=== PATIENT | male | born 1960 | race Caucasian/White ===

== ENCOUNTER 2022-01-19 18:01 | Inpatient (IN) | payer OTHER ==
[2022-01-19 20:55] VITALS: BMI 22.4
[2022-01-19] MEDS ORDERED: DICYCLOMINE HCL 10 MG CAPSULE PO PRN (23:57)
[2022-01-19] MEDS ORDERED: MAGNESIUM CITRATE 300 ML BOTTLE PO PRN (23:57)
[2022-01-19] MEDS ORDERED: ACETAMINOPHEN 325 MG TABLET (FP) PO PRN ×2 (23:57)
[2022-01-19] MEDS ORDERED: BISMUTH SUBSALICYLATE 524 MG/30 ML PO PRN (23:57)
[2022-01-19] MEDS ORDERED: LOPERAMIDE HCL 2 MG CAPSULE PO PRN (23:57)
[2022-01-19] MEDS ORDERED: MAG HYDROX/AL HYDROX/SIMETH 30 ML UNIT-DOSE CUP PO PRN (23:57)
[2022-01-19] MEDS ORDERED: ONDANSETRON *ODT* 4 MG TABLET SL PRN (23:57)
[2022-01-19] MEDS ORDERED: NICOTINE 10 MG CARTRIDGE (INHALER) IH PRN (23:57)
[2022-01-19] MEDS ORDERED: MAGNESIUM HYDROX 2400MG/30ML ORAL SUSPENSION 30 ML CUP PO PRN (23:57)
[2022-01-19] MEDS ORDERED: BENZOCAINE/MENTHOL (CHLORASEPTIC ) LOZENGE MM PRN (23:57)
[2022-01-19] MEDS ORDERED: IBUPROFEN 400 MG TABLET (FP) PO PRN (23:57)
[2022-01-20] MEDS: chlordiazePOXIDE HCL 25 MG CAPSULE PO PRN (01:26)
[2022-01-20] MEDS: METHOCARBAMOL 500 MG TABLET PO PRN ×2 (01:26→22:12)
[2022-01-20] MEDS: chlordiazePOXIDE HCL 25 MG CAPSULE PO SCH ×4 (05:16→22:13)
[2022-01-20 10:22] LABS: HEMATOCRIT 40.1 % (35.4-49); HEMOGLOBIN 13.4 GM/dL (11.7-16.9); MCHC 33.4 g/dl (32.0-35.9); MEAN CELL VOLUME 101.8 fl (80-96); PLATELET COUNT 179 10^3/uL (134-434); RBC 3.94 M/mm3 (4.00-5.60); RDW 14.1 % (11.9-15.9)
[2022-01-20] MEDS: NICOTINE 14 MG/24 HOURS TOPICAL PATCH TD SCH (10:40)
[2022-01-20] MEDS: PRENATAL VITAMINS W/ FOLIC ACID TABLET (FP) PO SCH (10:40)
[2022-01-20] MEDS: IBUPROFEN 600 MG TABLET (FP) PO PRN ×2 (10:42→22:11)
[2022-01-20 10:45] LABS: CALCIUM 8.8 mg/dL (8.5-10.1)
[2022-01-20 10:46] LABS: ALBUMIN 2.9 g/dl (3.4-5.0); BLOOD UREA NITROGEN 11.8 mg/dL (7-18)
[2022-01-20 10:49] LABS: CREATININE 0.6 mg/dL (0.55-1.3)
[2022-01-20 10:50] LABS: BILIRUBIN,TOTAL 1.1 mg/dL (0.2-1); TOT PROT 5.8 g/dl (6.4-8.2)
[2022-01-20] MEDS: QUEtiapine FUMARATE 50 MG TABLET PO SCH (22:12)
[2022-01-20] MEDS: MELATONIN 5 MG TABLETS PO SCH (22:12)
[2022-01-20] MEDS: THIAMINE HCL 100 MG TABLET (FP) PO SCH (22:13)
[2022-01-21] MEDS: chlordiazePOXIDE HCL 25 MG CAPSULE PO PRN (04:15)
[2022-01-21] MEDS: IBUPROFEN 600 MG TABLET (FP) PO PRN (04:16)
[2022-01-21] MEDS: METHOCARBAMOL 500 MG TABLET PO PRN (04:16)
[2022-01-21] MEDS: chlordiazePOXIDE HCL 25 MG CAPSULE PO SCH ×4 (05:20→22:16)
[2022-01-21] MEDS: PRENATAL VITAMINS W/ FOLIC ACID TABLET (FP) PO SCH (10:23)
[2022-01-21] MEDS: SERTRALINE HCL 50 MG TABLET (FP) PO SCH (10:23)
[2022-01-21] MEDS: NICOTINE 14 MG/24 HOURS TOPICAL PATCH TD SCH (10:23)
[2022-01-21] MEDS: AMOX TR/POT CLAV 875MG/125MG TABLETS (FP) PO SCH (22:17)
[2022-01-21] MEDS: ATORVASTATIN CA 80 MG TABLET (FP) PO SCH (22:17)
[2022-01-21] MEDS: THIAMINE HCL 100 MG TABLET (FP) PO SCH (22:17)
[2022-01-21] MEDS: MELATONIN 5 MG TABLETS PO SCH (22:17)
[2022-01-21] MEDS: QUEtiapine FUMARATE 50 MG TABLET PO SCH (22:17)
[2022-01-22] MEDS ORDERED: chlordiazePOXIDE HCL 10 MG CAPSULE PO PRN
[2022-01-22] MEDS: chlordiazePOXIDE HCL 10 MG CAPSULE PO SCH ×4 (05:09→22:13)
[2022-01-22] MEDS: AMOX TR/POT CLAV 875MG/125MG TABLETS (FP) PO SCH ×2 (07:00→17:32)
[2022-01-22] MEDS ORDERED: AMOX TR/POT CLAV 875MG/125MG TABLETS (FP) PO SCH (08:00)
[2022-01-22] MEDS: SERTRALINE HCL 50 MG TABLET (FP) PO SCH (10:15)
[2022-01-22] MEDS: NICOTINE 14 MG/24 HOURS TOPICAL PATCH TD SCH (10:15)
[2022-01-22] MEDS: PRENATAL VITAMINS W/ FOLIC ACID TABLET (FP) PO SCH (10:15)
[2022-01-22 14:37] LABS: BILIRUBIN,TOTAL 0.4 mg/dL (0.2-1)
[2022-01-22] MEDS: THIAMINE HCL 100 MG TABLET (FP) PO SCH (22:12)
[2022-01-22] MEDS: QUEtiapine FUMARATE 50 MG TABLET PO SCH (22:12)
[2022-01-22] MEDS: MELATONIN 5 MG TABLETS PO SCH (22:12)
[2022-01-22] MEDS: ATORVASTATIN CA 80 MG TABLET (FP) PO SCH (22:12)
[2022-01-23] MEDS: chlordiazePOXIDE HCL 10 MG CAPSULE PO SCH ×2 (05:32→18:31)
[2022-01-23] MEDS: AMOX TR/POT CLAV 875MG/125MG TABLETS (FP) PO SCH ×2 (07:39→18:31)
[2022-01-23] MEDS: SERTRALINE HCL 50 MG TABLET (FP) PO SCH (10:17)
[2022-01-23] MEDS: PRENATAL VITAMINS W/ FOLIC ACID TABLET (FP) PO SCH (10:17)
[2022-01-23] MEDS: NICOTINE 14 MG/24 HOURS TOPICAL PATCH TD SCH (10:18)
[2022-01-23] MEDS: MELATONIN 5 MG TABLETS PO SCH (22:51)
[2022-01-23] MEDS: QUEtiapine FUMARATE 50 MG TABLET PO SCH (22:51)
[2022-01-23] MEDS: ATORVASTATIN CA 80 MG TABLET (FP) PO SCH (22:51)
[2022-01-23] MEDS: THIAMINE HCL 100 MG TABLET (FP) PO SCH (22:51)
[2022-01-24] MEDS ORDERED: chlordiazePOXIDE HCL 10 MG CAPSULE PO ONE (05:00)
[2022-01-24 06:08] VITALS: TEMP 97.8
[2022-01-24] MEDS: AMOX TR/POT CLAV 875MG/125MG TABLETS (FP) PO SCH (07:36)
[2022-01-24 09:08] VITALS: BP 101/58; PULSE 74
== END 2022-01-24 09:52 | disposition home or self-care (01) | DRG 775 ==
LOC: YASAS 18:01 → Y3N 23:59
PROVIDERS: ADMIT Allergy & Immunology; ATTEND Surgery
PROC: HZ2ZZZZ Detoxification Services for Substance Abuse Treatment (ICD-10-PCS; principal; 2022-01-19)
DX: F10.230 Alcohol dependence with withdrawal, uncomplicated (principal); F17.210 Nicotine dependence, cigarettes, uncomplicated; F41.9 Anxiety disorder, unspecified; F32.A Depression, unspecified; F43.10 Post-traumatic stress disorder, unspecified; J18.9 Pneumonia, unspecified organism; E46 Unspecified protein-calorie malnutrition; E87.8 Other disorders of electrolyte and fluid balance, not elsewhere classified; E80.6 Other disorders of bilirubin metabolism; J43.9 Emphysema, unspecified; I10 Essential (primary) hypertension; E78.5 Hyperlipidemia, unspecified; F10.24 Alcohol dependence with alcohol-induced mood disorder; Z59.00 Homelessness unspecified; Z56.0 Unemployment, unspecified
CPT/HCPCS: 36415; 80053; 82247; 82435; 85027; 86780; 93005; 93010; C9803-CS; U0003; U0005

== ENCOUNTER 2023-03-15 13:50 | Inpatient (IN) | payer OTHER ==
[2023-03-15 15:21] VITALS: BMI 22.4
[2023-03-15] MEDS ORDERED: LORazepam 2 MG/ML SDV VIAL IM ONE (16:18)
[2023-03-15] MEDS ORDERED: guaiFENesin 600 MG TABLET.ER (FP) PO PRN (16:49)
[2023-03-15] MEDS ORDERED: BENZONATATE 200 MG CAPSULE PO PRN (16:49)
[2023-03-15] MEDS ORDERED: chlordiazePOXIDE HCL 25 MG CAPSULE PO PRN (16:49)
[2023-03-15] MEDS ORDERED: BISMUTH SUBSALICYLATE 524 MG/30 ML PO PRN (16:49)
[2023-03-15] MEDS ORDERED: NALOXONE HCL 0.4 MG/ML VIAL IM PRN (16:49)
[2023-03-15] MEDS ORDERED: MAG HYDROX/AL HYDROX/SIMETH 30 ML UNIT-DOSE CUP PO PRN (16:49)
[2023-03-15] MEDS ORDERED: BENZOCAINE/MENTHOL (CHLORASEPTIC ) LOZENGE MM PRN (16:49)
[2023-03-15] MEDS ORDERED: POLYETHYLENE GLYCOL (HEALTHYLAX) 3350 17 GM PACKET PO PRN (16:49)
[2023-03-15] MEDS ORDERED: IBUPROFEN 600 MG TABLET (FP) PO PRN (16:49)
[2023-03-15] MEDS ORDERED: DICYCLOMINE HCL 10 MG CAPSULE PO PRN (16:49)
[2023-03-15] MEDS ORDERED: NALOXONE HCL (KLOXXADO) 8 MG SPRAY NS PRN (16:49)
[2023-03-15] MEDS ORDERED: LOPERAMIDE HCL 2 MG CAPSULE PO PRN (16:49)
[2023-03-15] MEDS ORDERED: ONDANSETRON *ODT* 4 MG TABLET SL PRN (16:49)
[2023-03-15] MEDS ORDERED: IBUPROFEN 400 MG TABLET (FP) PO PRN (16:49)
[2023-03-15] MEDS ORDERED: MAGNESIUM HYDROX 2400MG/30ML ORAL SUSPENSION 30 ML CUP PO PRN (16:49)
[2023-03-15] MEDS: THIAMINE HCL 100 MG TABLET (FP) PO SCH (22:35)
[2023-03-15] MEDS: MELATONIN 5 MG TABLETS PO SCH (22:35)
[2023-03-15] MEDS: chlordiazePOXIDE HCL 25 MG CAPSULE PO SCH (22:37)
[2023-03-16] MEDS: chlordiazePOXIDE HCL 25 MG CAPSULE PO SCH ×4 (05:49→22:08)
[2023-03-16 09:52] LABS: HEMATOCRIT 40.8 % (35.4-49); HEMOGLOBIN 13.5 GM/dL (11.7-16.9); MCH 32.4 pg (25.7-33.7); MCHC 33.2 g/dl (32.0-35.9); MEAN CELL VOLUME 97.5 fl (80-96); MEAN PLT VOLUME 8.7 fl (7.5-11.1); PLATELET COUNT 77 10^3/uL (134-434); RBC 4.18 M/mm3 (4.00-5.60)
[2023-03-16 09:53] LABS: POTASSIUM 3.5 mmol/L (3.5-5.1)
[2023-03-16 10:05] LABS: ALBUMIN 2.8 g/dl (3.4-5.0); TOT PROT 5.5 g/dl (6.4-8.2)
[2023-03-16 10:06] LABS: BILIRUBIN,TOTAL 1.1 mg/dL (0.2-1); BLOOD UREA NITROGEN 12.8 mg/dL (7-18); CALCIUM 8.6 mg/dL (8.5-10.1); CREATININE 0.8 mg/dL (0.55-1.3)
[2023-03-16] MEDS: PRENATAL VITAMINS W/ FOLIC ACID TABLET (FP) PO SCH (10:21)
[2023-03-16] MEDS: ACETAMINOPHEN 325 MG TABLET (FP) PO PRN (14:17)
[2023-03-16] MEDS: METHOCARBAMOL 500 MG TABLET PO PRN ×2 (14:17→23:40)
[2023-03-16] MEDS: hydrOXYzine PAMOATE 25 MG CAPSULE (FP) PO PRN (18:55)
[2023-03-16] MEDS: MELATONIN 5 MG TABLETS PO SCH (22:08)
[2023-03-16] MEDS: THIAMINE HCL 100 MG TABLET (FP) PO SCH (22:08)
[2023-03-17] MEDS: chlordiazePOXIDE HCL 25 MG CAPSULE PO SCH ×4 (05:17→22:09)
[2023-03-17] MEDS: ACETAMINOPHEN 325 MG TABLET (FP) PO PRN ×2 (05:18→19:03)
[2023-03-17] MEDS: hydrOXYzine PAMOATE 25 MG CAPSULE (FP) PO PRN ×3 (05:18→19:03)
[2023-03-17] MEDS: METHOCARBAMOL 500 MG TABLET PO PRN ×3 (05:19→22:09)
[2023-03-17] MEDS ORDERED: COLLOIDAL OATMEAL 1 BAR EACH TP PRN (09:16)
[2023-03-17] MEDS ORDERED: BACITRACIN ZINC 15 GM TUBE TOPICAL OINTMENT TP SCH (10:00)
[2023-03-17 10:25] LABS: CHOLESTEROL 175 mg/dL (50-200)
[2023-03-17 10:26] LABS: LDL CHOLESTEROL (ONLY SJRH) 61 mg/dL (5-100)
[2023-03-17 10:28] LABS: HDL CHOLESTEROL 103 mg/dL (40-60)
[2023-03-17] MEDS: PRENATAL VITAMINS W/ FOLIC ACID TABLET (FP) PO SCH (10:46)
[2023-03-17] MEDS: BACITRACIN ZINC 15 GM TUBE TOPICAL OINTMENT TP SCH (12:04)
[2023-03-17] MEDS: BACITRACIN 0.9 GM PACKET TP SCH ×2 (12:24→22:09)
[2023-03-17] MEDS: MELATONIN 5 MG TABLETS PO SCH (22:08)
[2023-03-17] MEDS: THIAMINE HCL 100 MG TABLET (FP) PO SCH (22:08)
[2023-03-18] MEDS ORDERED: chlordiazePOXIDE HCL 10 MG CAPSULE PO PRN
[2023-03-18] MEDS: hydrOXYzine PAMOATE 25 MG CAPSULE (FP) PO PRN (02:06)
[2023-03-18] MEDS: chlordiazePOXIDE HCL 10 MG CAPSULE PO SCH ×4 (05:23→22:33)
[2023-03-18] MEDS: BACITRACIN 0.9 GM PACKET TP SCH ×2 (10:30→22:34)
[2023-03-18] MEDS: PRENATAL VITAMINS W/ FOLIC ACID TABLET (FP) PO SCH (10:30)
[2023-03-18] MEDS: THIAMINE HCL 100 MG TABLET (FP) PO SCH (22:33)
[2023-03-18] MEDS: QUEtiapine FUMARATE 50 MG TABLET PO SCH (22:33)
[2023-03-18] MEDS: traZODone HCL 50 MG TABLET (FP) PO SCH (22:33)
[2023-03-19] MEDS: METHOCARBAMOL 500 MG TABLET PO PRN ×2 (05:31→18:09)
[2023-03-19] MEDS: chlordiazePOXIDE HCL 10 MG CAPSULE PO SCH ×2 (05:31→18:07)
[2023-03-19] MEDS: ACETAMINOPHEN 325 MG TABLET (FP) PO PRN (05:32)
[2023-03-19] MEDS: hydrOXYzine PAMOATE 25 MG CAPSULE (FP) PO PRN ×2 (05:33→18:09)
[2023-03-19] MEDS: BACITRACIN 0.9 GM PACKET TP SCH ×2 (10:21→22:15)
[2023-03-19] MEDS: PRENATAL VITAMINS W/ FOLIC ACID TABLET (FP) PO SCH (10:21)
[2023-03-19] MEDS: SERTRALINE HCL 50 MG TABLET (FP) PO SCH (10:22)
[2023-03-19] MEDS: QUEtiapine FUMARATE 50 MG TABLET PO SCH (22:14)
[2023-03-19] MEDS: THIAMINE HCL 100 MG TABLET (FP) PO SCH (22:14)
[2023-03-19] MEDS: traZODone HCL 50 MG TABLET (FP) PO SCH (22:14)
[2023-03-20] MEDS ORDERED: chlordiazePOXIDE HCL 10 MG CAPSULE PO ONE (05:00)
[2023-03-20] MEDS: METHOCARBAMOL 500 MG TABLET PO PRN (05:18)
[2023-03-20] MEDS: hydrOXYzine PAMOATE 25 MG CAPSULE (FP) PO PRN (05:18)
[2023-03-20 06:13] VITALS: RESP 18; TEMP 97.7
[2023-03-20 06:18] VITALS: BP 141/96; PULSE 75
[2023-03-20] MEDS: SERTRALINE HCL 50 MG TABLET (FP) PO SCH (10:22)
[2023-03-20] MEDS: PRENATAL VITAMINS W/ FOLIC ACID TABLET (FP) PO SCH (10:22)
[2023-03-20] MEDS: BACITRACIN 0.9 GM PACKET TP SCH (10:22)
== END 2023-03-20 09:00 | disposition home or self-care (01) | DRG 775 ==
LOC: YASAS 13:50 → Y6N 16:46
PROVIDERS: ADMIT Allergy & Immunology; ATTEND Surgery
PROC: HZ2ZZZZ Detoxification Services for Substance Abuse Treatment (ICD-10-PCS; principal; 2023-03-15)
DX: F10.230 Alcohol dependence with withdrawal, uncomplicated (principal); F17.210 Nicotine dependence, cigarettes, uncomplicated; F25.1 Schizoaffective disorder, depressive type; F10.24 Alcohol dependence with alcohol-induced mood disorder; F43.10 Post-traumatic stress disorder, unspecified; I10 Essential (primary) hypertension; J43.9 Emphysema, unspecified; Z87.09 Personal history of other diseases of the respiratory system; Z28.310 Unvaccinated for COVID-19; Z28.9 Immunization not carried out for unspecified reason
CPT/HCPCS: 36415; 80053; 80061; 85027; 86780; 87635

== ENCOUNTER 2023-05-31 19:06 | Inpatient (IN) | payer OTHER ==
[2023-05-31 19:43] VITALS: BMI 23.7
[2023-05-31] MEDS ORDERED: chlordiazePOXIDE HCL 25 MG CAPSULE PO ONE (20:09)
[2023-05-31] MEDS ORDERED: chlordiazePOXIDE HCL 25 MG CAPSULE PO PRN (20:09)
[2023-05-31] MEDS ORDERED: LORazepam 2 MG/ML SDV VIAL IM ONE (20:09)
[2023-05-31] MEDS ORDERED: guaiFENesin 600 MG TABLET.ER (FP) PO PRN (20:10)
[2023-05-31] MEDS ORDERED: ONDANSETRON *ODT* 4 MG TABLET SL PRN (20:10)
[2023-05-31] MEDS ORDERED: DICYCLOMINE HCL 10 MG CAPSULE PO PRN (20:10)
[2023-05-31] MEDS ORDERED: NICOTINE POLACRILEX 2 MG GUM BUC PRN (20:10)
[2023-05-31] MEDS ORDERED: POLYETHYLENE GLYCOL (HEALTHYLAX) 3350 17 GM PACKET PO PRN (20:10)
[2023-05-31] MEDS ORDERED: BENZOCAINE/MENTHOL (CHLORASEPTIC ) LOZENGE MM PRN (20:10)
[2023-05-31] MEDS ORDERED: ACETAMINOPHEN 325 MG TABLET (FP) PO PRN (20:10)
[2023-05-31] MEDS ORDERED: BENZONATATE 200 MG CAPSULE PO PRN (20:10)
[2023-05-31] MEDS ORDERED: MAGNESIUM HYDROX 2400MG/30ML ORAL SUSPENSION 30 ML CUP PO PRN (20:10)
[2023-05-31] MEDS ORDERED: IBUPROFEN 400 MG TABLET (FP) PO PRN (20:10)
[2023-05-31] MEDS ORDERED: BISMUTH SUBSALICYLATE 524 MG/30 ML PO PRN (20:10)
[2023-05-31] MEDS ORDERED: P-EPHED 60MG/TRIPROLIDI 2.5MG TABLET PO PRN (20:10)
[2023-05-31] MEDS ORDERED: MAG HYDROX/AL HYDROX/SIMETH 30 ML UNIT-DOSE CUP PO PRN (20:10)
[2023-05-31] MEDS ORDERED: LOPERAMIDE HCL 2 MG CAPSULE PO PRN (20:10)
[2023-05-31] MEDS ORDERED: chlordiazePOXIDE HCL 25 MG CAPSULE ONE (20:29)
[2023-05-31] MEDS: levETIRAcetam 500 MG TABLET (FP) PO SCH (22:21)
[2023-05-31] MEDS: MELATONIN 5 MG TABLETS PO SCH (22:21)
[2023-05-31] MEDS: THIAMINE HCL 100 MG TABLET (FP) PO SCH (22:21)
[2023-05-31] MEDS: chlordiazePOXIDE HCL 25 MG CAPSULE PO SCH (22:24)
[2023-06-01] MEDS: chlordiazePOXIDE HCL 25 MG CAPSULE PO SCH ×4 (05:23→22:15)
[2023-06-01] MEDS: METHOCARBAMOL 500 MG TABLET PO PRN (10:14)
[2023-06-01] MEDS: PRENATAL VITAMINS W/ FOLIC ACID TABLET (FP) PO SCH (10:14)
[2023-06-01] MEDS: hydrOXYzine PAMOATE 25 MG CAPSULE (FP) PO PRN (10:14)
[2023-06-01] MEDS: levETIRAcetam 500 MG TABLET (FP) PO SCH ×2 (10:15→22:14)
[2023-06-01 10:26] LABS: CHLORIDE 109 mmol/L (98-107); POTASSIUM 4.4 mmol/L (3.5-5.1); SODIUM 139 mmol/L (136-145)
[2023-06-01 10:30] LABS: CALCIUM 8.5 mg/dL (8.5-10.1)
[2023-06-01 10:31] LABS: ALBUMIN 3.3 g/dl (3.4-5.0); ANION GAP 2 mmol/L (4-13); BLOOD UREA NITROGEN 26.8 mg/dL (7-18); CO2 27 mmol/L (21-32); GLUCOSE,RANDOM 92 mg/dL (74-106)
[2023-06-01 10:34] LABS: SGOT/AST 29 U/L (15-37); SGPT/ALT 26 U/L (13-61)
[2023-06-01 10:35] LABS: BILIRUBIN,TOTAL 1.5 mg/dL (0.2-1)
[2023-06-01 10:36] LABS: TOT PROT 6.2 g/dl (6.4-8.2)
[2023-06-01 10:37] LABS: ALK PHOS 68 U/L (45-117)
[2023-06-01 10:57] LABS: HEMATOCRIT 43.6 % (35.4-49); HEMOGLOBIN 14.3 GM/dL (11.7-16.9); MCH 32.1 pg (25.7-33.7); MCHC 32.8 g/dl (32.0-35.9); MEAN CELL VOLUME 97.8 fl (80-96); MEAN PLT VOLUME 7.8 fl (7.5-11.1); PLATELET COUNT 133 10^3/uL (134-434); RBC 4.46 M/mm3 (4.00-5.60); RDW 13.6 % (11.9-15.9); WHITE BLOOD COUNT 10.6 K/mm3 (4.0-10.0)
[2023-06-01] MEDS: ASPIRIN COATED 81 MG TABLET.EC PO SCH (17:50)
[2023-06-01] MEDS: MELATONIN 5 MG TABLETS PO SCH (22:14)
[2023-06-01] MEDS: ATORVASTATIN CA 40 MG TABLET (FP) PO SCH (22:14)
[2023-06-01] MEDS: traZODone HCL 50 MG TABLET (FP) PO PRN (22:15)
[2023-06-01] MEDS: THIAMINE HCL 100 MG TABLET (FP) PO SCH (22:15)
[2023-06-02] MEDS: chlordiazePOXIDE HCL 25 MG CAPSULE PO SCH ×4 (05:23→22:10)
[2023-06-02] MEDS: levETIRAcetam 500 MG TABLET (FP) PO SCH ×2 (10:09→22:09)
[2023-06-02] MEDS: PRENATAL VITAMINS W/ FOLIC ACID TABLET (FP) PO SCH (10:09)
[2023-06-02] MEDS: ASPIRIN COATED 81 MG TABLET.EC PO SCH (10:09)
[2023-06-02] MEDS: SERTRALINE HCL 50 MG TABLET (FP) PO SCH (15:07)
[2023-06-02] MEDS: QUEtiapine FUMARATE 50 MG TABLET PO SCH (22:09)
[2023-06-02] MEDS: ATORVASTATIN CA 40 MG TABLET (FP) PO SCH (22:09)
[2023-06-02] MEDS: THIAMINE HCL 100 MG TABLET (FP) PO SCH (22:10)
[2023-06-02] MEDS: traZODone HCL 50 MG TABLET (FP) PO PRN (22:10)
[2023-06-03] MEDS ORDERED: chlordiazePOXIDE HCL 10 MG CAPSULE PO PRN
[2023-06-03] MEDS: hydrOXYzine PAMOATE 25 MG CAPSULE (FP) PO PRN (00:21)
[2023-06-03] MEDS: METHOCARBAMOL 500 MG TABLET PO PRN (00:22)
[2023-06-03] MEDS: chlordiazePOXIDE HCL 10 MG CAPSULE PO SCH ×4 (05:19→22:14)
[2023-06-03] MEDS: PRENATAL VITAMINS W/ FOLIC ACID TABLET (FP) PO SCH (10:05)
[2023-06-03] MEDS: levETIRAcetam 500 MG TABLET (FP) PO SCH ×2 (10:05→22:13)
[2023-06-03] MEDS: SERTRALINE HCL 50 MG TABLET (FP) PO SCH (10:05)
[2023-06-03] MEDS: ASPIRIN COATED 81 MG TABLET.EC PO SCH (10:05)
[2023-06-03 17:08] LABS: BASO % 0.4 % (0-2.0); EOS % 3.1 % (0-4.5); HEMATOCRIT 39.3 % (35.4-49); HEMOGLOBIN 13.1 GM/dL (11.7-16.9); LYMPH % 18.3 % (8-40); MCH 32.4 pg (25.7-33.7); MCHC 33.2 g/dl (32.0-35.9); MEAN CELL VOLUME 97.6 fl (80-96); MEAN PLT VOLUME 7.8 fl (7.5-11.1); MONO % 10.6 % (3.8-10.2); NEUT % 67.6 % (42.8-82.8); PLATELET COUNT 114 10^3/uL (134-434); RBC 4.03 M/mm3 (4.00-5.60); RDW 13.6 % (11.9-15.9); WHITE BLOOD COUNT 8.5 K/mm3 (4.0-10.0)
[2023-06-03] MEDS: ATORVASTATIN CA 40 MG TABLET (FP) PO SCH (22:13)
[2023-06-03] MEDS: QUEtiapine FUMARATE 50 MG TABLET PO SCH (22:14)
[2023-06-03] MEDS: THIAMINE HCL 100 MG TABLET (FP) PO SCH (22:14)
[2023-06-03] MEDS: traZODone HCL 50 MG TABLET (FP) PO PRN (22:14)
[2023-06-04] MEDS: METHOCARBAMOL 500 MG TABLET PO PRN (01:17)
[2023-06-04] MEDS: hydrOXYzine PAMOATE 25 MG CAPSULE (FP) PO PRN (01:17)
[2023-06-04] MEDS: chlordiazePOXIDE HCL 10 MG CAPSULE PO SCH ×2 (06:01→17:02)
[2023-06-04] MEDS: ASPIRIN COATED 81 MG TABLET.EC PO SCH (10:04)
[2023-06-04] MEDS: levETIRAcetam 500 MG TABLET (FP) PO SCH ×2 (10:04→22:15)
[2023-06-04] MEDS: SERTRALINE HCL 50 MG TABLET (FP) PO SCH (10:04)
[2023-06-04] MEDS: PRENATAL VITAMINS W/ FOLIC ACID TABLET (FP) PO SCH (10:04)
[2023-06-04] MEDS: ATORVASTATIN CA 40 MG TABLET (FP) PO SCH (22:14)
[2023-06-04] MEDS: traZODone HCL 50 MG TABLET (FP) PO PRN (22:14)
[2023-06-04] MEDS: QUEtiapine FUMARATE 50 MG TABLET PO SCH (22:15)
[2023-06-04] MEDS: THIAMINE HCL 100 MG TABLET (FP) PO SCH (22:15)
[2023-06-05] MEDS ORDERED: chlordiazePOXIDE HCL 10 MG CAPSULE PO ONE (05:00)
[2023-06-05 10:00] VITALS: BP 100/62; PULSE 88; RESP 18; TEMP 98.3
[2023-06-05] MEDS: PRENATAL VITAMINS W/ FOLIC ACID TABLET (FP) PO SCH (10:05)
[2023-06-05] MEDS: SERTRALINE HCL 50 MG TABLET (FP) PO SCH (10:05)
[2023-06-05] MEDS: ASPIRIN COATED 81 MG TABLET.EC PO SCH (10:05)
== END 2023-06-05 09:45 | disposition home or self-care (01) | DRG 775 ==
LOC: YASAS 19:06 → Y6N 21:01
PROVIDERS: ADMIT Allergy & Immunology; ATTEND Surgery
PROC: HZ2ZZZZ Detoxification Services for Substance Abuse Treatment (ICD-10-PCS; principal; 2023-05-31)
DX: F10.230 Alcohol dependence with withdrawal, uncomplicated (principal); F17.210 Nicotine dependence, cigarettes, uncomplicated; F10.280 Alcohol dependence with alcohol-induced anxiety disorder; F10.282 Alcohol dependence with alcohol-induced sleep disorder; F32.9 Major depressive disorder, single episode, unspecified; F43.10 Post-traumatic stress disorder, unspecified; E78.5 Hyperlipidemia, unspecified; I10 Essential (primary) hypertension; J44.9 Chronic obstructive pulmonary disease, unspecified; Z87.01 Personal history of pneumonia (recurrent); Z86.59 Personal history of other mental and behavioral disorders; Z86.69 Personal history of other diseases of the nervous system and sense organs; Z56.0 Unemployment, unspecified; Z59.00 Homelessness unspecified; Z28.310 Unvaccinated for COVID-19; Z28.9 Immunization not carried out for unspecified reason
CPT/HCPCS: 36415; 80053; 80307; 85025; 85027; 86780; 87635

== ENCOUNTER 2023-10-24 18:38 | Inpatient (IN) | payer BC ==
[2023-10-24 21:05] VITALS: BMI 23.6
[2023-10-24] MEDS ORDERED: BISMUTH SUBSALICYLATE 524 MG/30 ML PO PRN (22:32)
[2023-10-24] MEDS ORDERED: MAGNESIUM HYDROX 2400MG/30ML ORAL SUSPENSION 30 ML CUP PO PRN (22:32)
[2023-10-24] MEDS ORDERED: guaiFENesin 600 MG TABLET.ER (FP) PO PRN (22:32)
[2023-10-24] MEDS ORDERED: NALOXONE HCL 0.4 MG/ML VIAL IM PRN (22:32)
[2023-10-24] MEDS ORDERED: BENZOCAINE/MENTHOL (CHLORASEPTIC ) LOZENGE MM PRN (22:32)
[2023-10-24] MEDS ORDERED: MAG HYDROX/AL HYDROX/SIMETH 30 ML UNIT-DOSE CUP PO PRN (22:32)
[2023-10-24] MEDS ORDERED: NICOTINE POLACRILEX 2 MG GUM BUC PRN (22:32)
[2023-10-24] MEDS ORDERED: NALOXONE HCL (KLOXXADO) 8 MG SPRAY NS PRN (22:32)
[2023-10-24] MEDS ORDERED: BENZONATATE 200 MG CAPSULE PO PRN (22:32)
[2023-10-24] MEDS ORDERED: hydrOXYzine PAMOATE 25 MG CAPSULE (FP) PO PRN (22:32)
[2023-10-24] MEDS ORDERED: LOPERAMIDE HCL 2 MG CAPSULE PO PRN (22:32)
[2023-10-24] MEDS ORDERED: ONDANSETRON *ODT* 4 MG TABLET SL PRN (22:32)
[2023-10-24] MEDS ORDERED: IBUPROFEN 400 MG TABLET (FP) PO PRN (22:32)
[2023-10-24] MEDS ORDERED: POLYETHYLENE GLYCOL (HEALTHYLAX) 3350 17 GM PACKET PO PRN (22:32)
[2023-10-24] MEDS ORDERED: LORazepam 1 MG TABLET PO PRN (22:37)
[2023-10-24] MEDS ORDERED: ACETAMINOPHEN 325 MG TABLET (FP) PO PRN (23:33)
[2023-10-24] MEDS ORDERED: LORazepam 2 MG TABLET ONE (23:37)
[2023-10-24] MEDS: LORazepam 2 MG TABLET PO SCH (23:38)
[2023-10-25] MEDS: METHOCARBAMOL 500 MG TABLET PO PRN (11:37)
[2023-10-25] MEDS: PRENATAL VITAMINS W/ FOLIC ACID TABLET (FP) PO SCH (11:37)
[2023-10-25] MEDS: FOLIC ACID 1 MG TABLET (FP) PO SCH (11:37)
[2023-10-25] MEDS: NICOTINE 21 MG/24 HOURS TOPICAL PATCH TD SCH (11:37)
[2023-10-25] MEDS: IBUPROFEN 600 MG TABLET (FP) PO PRN (11:43)
[2023-10-25] MEDS: ASPIRIN COATED 81 MG TABLET.EC PO SCH (14:03)
[2023-10-25] MEDS: MULTIVIT MIN PO SCH (14:04)
[2023-10-25] MEDS: [UNRECOGNIZED DRUG - OTHER] PO SCH (14:04)
[2023-10-25] MEDS: FOLIC AC PO SCH (14:04)
[2023-10-25] MEDS: IRON FUM PO SCH (14:04)
[2023-10-25 15:26] LABS: CHLORIDE 109 mmol/L (98-107); POTASSIUM 3.9 mmol/L (3.5-5.1); SODIUM 139 mmol/L (136-145)
[2023-10-25 15:31] LABS: ANION GAP 3 mmol/L (4-13); BLOOD UREA NITROGEN 13.8 mg/dL (7-18); CALCIUM 8.5 mg/dL (8.5-10.1); CO2 27 mmol/L (21-32); GLUCOSE,RANDOM 91 mg/dL (74-106)
[2023-10-25 15:32] LABS: ALBUMIN 2.2 g/dl (3.4-5.0)
[2023-10-25 15:34] LABS: SGPT/ALT 56 U/L (13-61)
[2023-10-25 15:35] LABS: CREATININE 0.8 mg/dL (0.55-1.3); SGOT/AST 120 U/L (15-37)
[2023-10-25 15:36] LABS: ALK PHOS 72 U/L (45-117); BILIRUBIN,TOTAL 0.4 mg/dL (0.2-1); HEMATOCRIT 34.3 % (35.4-49); HEMOGLOBIN 11.2 GM/dL (11.7-16.9); MCH 32.9 pg (25.7-33.7); MCHC 32.6 g/dl (32.0-35.9); MEAN CELL VOLUME 100.9 fl (80-96); MEAN PLT VOLUME 7.8 fl (7.5-11.1); PLATELET COUNT 206 10^3/uL (134-434); RDW 15.3 % (11.9-15.9); WHITE BLOOD COUNT 6.7 K/mm3 (4.0-10.0)
[2023-10-25] MEDS ORDERED: MELATONIN 5 MG TABLETS PO SCH (22:00)
[2023-10-25] MEDS: QUEtiapine FUMARATE 300 MG TABLET PO SCH (22:04)
[2023-10-25] MEDS: ATORVASTATIN CA 40 MG TABLET (FP) PO SCH (22:04)
[2023-10-25] MEDS: traZODone HCL 50 MG TABLET (FP) PO SCH (22:04)
[2023-10-25] MEDS: THIAMINE HCL 100 MG TABLET (FP) PO SCH (22:04)
[2023-10-26] MEDS: ACETAMINOPHEN 325 MG TABLET (FP) PO PRN (05:52)
[2023-10-26] MEDS: LORazepam 1 MG TABLET PO SCH (05:53)
[2023-10-26] MEDS: SERTRALINE HCL 50 MG TABLET (FP) PO SCH (10:50)
[2023-10-27] MEDS ORDERED: LORazepam 0.5 MG TABLET PO PRN
[2023-10-27] MEDS: LORazepam 0.5 MG TABLET PO SCH (05:55)
[2023-10-28] MEDS: LORazepam 0.5 MG TABLET PO ONE (05:46)
[2023-10-28 06:12] VITALS: BP 119/68; PULSE 72; RESP 20; TEMP 97.1
== END 2023-10-28 11:30 | disposition home or self-care (01) | DRG 774 ==
LOC: YASAS 18:38 → Y6N 22:44
PROVIDERS: ADMIT Allergy & Immunology; ATTEND Surgery
PROC: HZ2ZZZZ Detoxification Services for Substance Abuse Treatment (ICD-10-PCS; principal; 2023-10-24)
DX: F10.230 Alcohol dependence with withdrawal, uncomplicated (principal); F14.20 Cocaine dependence, uncomplicated; F25.1 Schizoaffective disorder, depressive type; F10.280 Alcohol dependence with alcohol-induced anxiety disorder; F10.282 Alcohol dependence with alcohol-induced sleep disorder; F32.9 Major depressive disorder, single episode, unspecified; F43.10 Post-traumatic stress disorder, unspecified; I10 Essential (primary) hypertension; J43.9 Emphysema, unspecified; Z87.01 Personal history of pneumonia (recurrent); Z86.711 Personal history of pulmonary embolism; Z86.69 Personal history of other diseases of the nervous system and sense organs; Z56.0 Unemployment, unspecified; Z59.00 Homelessness unspecified
CPT/HCPCS: 36415; 80053; 80307; 84450; 85027; 86780; 86803; 93005; 93010